=== PATIENT | female | born 1965 | race Hispanic/Latino ===

== ENCOUNTER 2017-09-10 14:34 | Emergency (ER) | payer BC ==
[2017-09-10 14:48] VITALS: O2SAT 100
[2017-09-10 14:58] VITALS: BMI 31.2
[2017-09-10] MEDS ORDERED: Sodium Chloride 0.9% 1,000 ML IV STA (14:59)
--- NOTE | 2017-09-10 15:00 | ED PDOC ---
Arrival/HPI - General Time Seen by Provider: 09/10/17 14:40 Historian: Patient - History of Present Illness Narrative History of Present Illness (Text): 09/10/17 14:57 A 52 year old female, whose past medical history includes hypertension, mild valve regurgitation, presents to the emergency department complaining of nausea , vomiting, and diarrhea that began today. The patient states that she had lunch this afternoon and after she became dizzy and started having diarrhea, nausea, and vomiting. The patient denies fevers, chills, headache, chest pain, shortness of breath, dyspnea on exertion, cough, abdominal pain, back pain, neck pain, urinary/bowel changes, or any other complaint. PMD: Dr. Dean Time/Duration: Other (Today) Symptom Onset: Sudden Symptom Course: Unchanged Activities at Onset: Rest, Light Context: Home Past Medical History - Provider Review Nursing Documentation Reviewed: Yes - Cardiac Hx Pacemaker: No - Neurological Hx Paralysis: No - Endocrine/Metabolic Hx Hypothyroidism: Yes - Hematological/Oncological Hx Blood Transfusions: No Hx Blood Transfusion Reaction: No - Musculoskeletal/Rheumatological Hx Musculoskeletal Disorders: No - Psychiatric Hx Emotional Abuse: No Hx Physical Abuse: No Hx Substance Use: No - Surgical History Hx Tubal Ligation: Yes - Anesthesia Hx Anesthesia Reactions: Yes (NAUSEA) Hx Malignant Hyperthermia: No - Suicidal Assessment Feels Threatened In Home Enviroment: No Family/Social History - Physician Review Nursing Documentation Reviewed: Yes Family/Social History: No Known Family HX Smoking Status: Never Smoked Hx Alcohol Use: No Hx Substance Use: No Allergies/Home Meds Allergies/Adverse Reactions: Allergies azithromycin Allergy (Verified 09/10/17 14:48) RASH Home Medications: Home Meds Medication Instructions Recorded Confirmed Escitalopram [Lexapro] 10 mg PO DAILY 04/08/12 09/10/17 Levothyroxine [Synthroid] 100 mcg PO DAILY 04/08/12 09/10/17 Valsartan [Diovan] 80 mg PO DAILY 09/10/17 09/10/17 Review of Systems - Physician Review All systems were reviewed & negative as marked: Yes - Review of Systems Constitutional: absent: Fevers, Night Sweats Respiratory: absent: SOB, Cough Cardiovascular: absent: Chest Pain, JACOBS Gastrointestinal: Diarrhea, Nausea, Vomiting. absent: Abdominal Pain Genitourinary Female: absent: Urine Output Changes Musculoskeletal: absent: Back Pain, Neck Pain Neurological: Dizziness. absent: Headache Physical Exam Vital Signs Reviewed: Yes Vital Signs Pulse Resp BP Pulse Ox 09/10/17 17:45 86 18 135/61 100 09/10/17 17:03 97 H 18 138/65 100 09/10/17 14:47 103 H 19 142/69 100 Temperature: Afebrile Blood Pressure: Normal Pulse: Regular Respiratory Rate: Normal Appearance: Positive for: Well-Appearing, Non-Toxic, Comfortable Pain Distress: None Mental Status: Positive for: Alert and Oriented X 3 - Systems Exam Head: Present: Atraumatic, Normocephalic Pupils: Present: PERRL Extroacular Muscles: Present: EOMI Conjunctiva: Present: Normal Mouth: Present: Moist Mucous Membranes Neck: Present: Normal Range of Motion Respiratory/Chest: Present: Clear to Auscultation, Good Air Exchange. No: Respiratory Distress, Accessory Muscle Use Cardiovascular: Present: Regular Rate and Rhythm, Normal S1, S2. No: Murmurs Abdomen: Present: Normal Bowel Sounds. No: Tenderness, Distention, Peritoneal Signs Back: Present: Normal Inspection Upper Extremity: Present: Normal Inspection. No: Cyanosis, Edema Lower Extremity: Present: Normal Inspection. No: Edema Neurological: Present: GCS=15, CN II-XII Intact, Speech Normal Skin: Present: Warm, Dry, Normal Color. No: Rashes Psychiatric: Present: Alert, Oriented x 3, Normal Insight, Normal Concentration Medical Decision Making ED Course and Treatment: 09/10/17 15:00 Impression: A 52 year old female presents to the emergency department complaining of nausea , vomiting, diarrhea, and dizziness that began this afternoon. Plan: -- Abdominal Ultrasound -- Labs -- Zofran and IV Fluids -- Urinalysis -- Reassess and disposition Prior Visits: Notes and results from previous visits were reviewed. Patient was last seen in the emergency department on 01/07/13. The patient was seen in the emergency department complaining of headache, dizziness, vomiting. The patient was hospitalized. Progress Notes: EKG: Ordered, reviewed, and independently interpreted the EKG. Rate : 98 BPM Rhythm : NSR Interpretation : Short AL. Non- specific ST- T wave changes. 09/10/17 18:15 Feeling much better, All tests normal- wants to go home - Lab Interpretations Lab Results: 09/10/17 15:00 09/10/17 15:00 Lab Results 09/10/17 16:38: Urine Color Yellow, Urine Appearance Clear, Urine pH 6.5, Ur Specific Tangent 1.020, Urine Protein Negative, Urine Glucose (UA) Negative, Urine Ketones >=80, Urine Blood Negative, Urine Nitrate Negative, Urine Bilirubin Negative, Urine Urobilinogen 0.2, Ur Leukocyte Esterase Negative 09/10/17 15:20: POC Glucose (mg/dL) 109 09/10/17 15:00: Sodium 134, Potassium 3.1 L, Chloride 99, Carbon Dioxide 22, Anion Gap 16, BUN 11, Creatinine 0.6 L, Est GFR ( Amer) > 60, Est GFR ( Non-Af Amer) > 60, Random Glucose 116 H, Calcium 9.5, Total Bilirubin 0.5, AST 26, ALT 32, Alkaline Phosphatase 124, Total Protein 7.8, Albumin 4.5, Globulin 3.3, Albumin/Globulin Ratio 1.4, Lipase 77 09/10/17 15:00: WBC 6.8, RBC 4.72, Hgb 13.3, Hct 39.5, MCV 83.7, MCH 28.2, MCHC 33.7, RDW 12.7, Plt Count 322, MPV 9.0, Gran % 75.1 H, Lymph % (Auto) 12.6 L, [place] % (Auto) 11.0 H, Eos % (Auto) 0.9 L, Baso % (Auto) 0.4, Gran # 5.14, Lymph # 0.9 L, [place] # 0.8 H, Eos # 0.1, Baso # 0.03 I have reviewed the lab results: Yes - RAD Interpretation Radiology Orders: 09/10/17 14:59 ABDOMEN COMPLETE [US] Stat - Medication Orders Current Medication Orders: Discontinued Medications Sodium Chloride (Sodium Chloride 0.9%) 1,000 mls @ 999 mls/hr IV .Q1H1M STA Stop: 09/10/17 15:59 Last Admin: 09/10/17 15:11 Dose: 999 mls/hr eMAR Start Stop Document 09/10/17 15:11 SF (Rec: 09/10/17 15:11 [id number]) Intravenous Solution Start Date 09/10/17 Start Time 15:11 End Date 09/10/17 End time 16:12 Total Infusion Time 61 Ondansetron HCl (Zofran Inj) 8 mg IVP STAT STA Stop: 09/10/17 15:00 Last Admin: 09/10/17 15:11 Dose: 8 mg IVP Administration Document 09/10/17 15:11 SF (Rec: 09/10/17 15:[address] [id number]) Charges for Administration # of IVP Administrations 1 Ondansetron HCl (Zofran Odt) 8 mg PO STAT STA Stop: 09/10/17 17:22 Last Admin: 09/10/17 17:50 Dose: 8 mg - PA / [employer] SUPERVISOR / Resident Statement MD/DO has reviewed & agrees with the documentation as recorded. - Scribe Statement The provider has reviewed the documentation as recorded by the Scribe Ivette Pineda Provider Scribe Attestation: All medical record entries made by the Scribe were at my direction and personally dictated by me. I have reviewed the chart and agree that the record accurately reflects my personal performance of the history, physical exam, medical decision making, and the department course for this patient. I have also personally directed, reviewed, and agree with the discharge instructions and disposition. Disposition/Present on Arrival - Present on Arrival Any Indicators Present on Arrival: No History of DVT/PE: No History of Uncontrolled Diabetes: No Urinary Catheter: No History Surgical Site Infection Following: None - Disposition Have Diagnosis and Disposition been Completed?: Yes Diagnosis: Viral syndrome, Gastroenteritis Disposition: HOME/ ROUTINE Disposition Time: 18:16 Patient Plan: Discharge Condition: GOOD Discharge Instructions (ExitCare): Gastroenteritis (ED) Additional Instructions: Karissa- Sorry this hit you so hard. Rest, Clear liquids only, ZofranODT for nausea and or vomiting. Follow up with your doctor next week. Return to us if worse or new symptoms. Best- Dr. Nico Cavazos Prescriptions: Ondansetron ODT [Zofran ODT] 8 mg PO TID #30 odt Referrals: Nazario Dean MD [Primary Care Provider] - Follow up with primary
[2017-09-10 15:26] LABS: ALB/GLOB RATIO 1.4 (1.1-1.8); ALBUMIN 4.5 g/dL (3.0-4.8); ALT/SGPT 32 U/L (7-56); AST/SGOT 26 U/L (14-36); BLOOD UREA NITROGEN 11 mg/dL (7-21); CALCIUM 9.5 mg/dL (8.4-10.5); GFR AFRICAN-AMERICAN > 60; GFR NON-AFRICAN AMERICAN > 60; LIPASE 77 U/L (23-300)
[2017-09-10 15:28] LABS: BASO # 0.03 K/mm3 (0.0-2.0); BASO % 0.4 % (0.0-3.0); EOS # 0.1 (0.0-0.7); EOS % 0.9 % (1.5-5.0); GRAN # 5.14 (1.4-6.5); GRAN % 75.1 % (50.0-68.0); HEMOGLOBIN 13.3 g/dL (12.0-16.0); LYMPH # 0.9 (1.2-3.4); LYMPH % 12.6 % (22.0-35.0); MEAN CELL VOLUME 83.7 fl (80.0-105.0); MEAN CORPUSCULAR HEMOGLOBIN 28.2 pg (25.0-35.0); MEAN CORPUSCULAR HGB CONC 33.7 g/dl (31.0-37.0); MONO # 0.8 (0.1-0.6); RBC 4.72 10^6/uL (3.5-6.1); RED CELL DISTRIBUTION WIDTH 12.7 % (11.5-14.5); WHITE BLOOD COUNT 6.8 10^3/ul (4.5-11.0)
--- NOTE | 2017-09-10 16:32 | US ---
HISTORY: Biliary Colic COMPARISON: None. TECHNIQUE: Grayscale imaging was performed. FINDINGS: LIVER: Measures 14.6 cm. Normal echogenicity of the liver parenchyma. No mass. No intrahepatic bile duct dilatation. GALLBLADDER: There are no gallstones, wall thickening or pericholecystic fluid. The sonographic Moreno's sign negative. COMMON BILE DUCT: Measures 3.5 mm. No stones. No dilatation. PANCREAS: Normal in size and echotexture. No mass. No ductal dilatation. RIGHT KIDNEY: Measures 10.7cm. Normal echogenicity. No calculus, mass, or hydronephrosis. LEFT KIDNEY: Measures 10.2cm. Normal echogenicity. No calculus, mass, or hydronephrosis. There is a prominent column of Darius in the interpolar region SPLEEN: Normal in size and contour. No mass. AORTA: No aneurysmal dilatation. IVC: Unremarkable. OTHER FINDINGS: None. IMPRESSION: No cholelithiasis or biliary dilatation
[2017-09-10 16:44] LABS: PH,URINE 6.5 (4.7-8.0); URINE BILIRUBIN NEGATIVE (NEGATIVE); URINE BLOOD NEGATIVE (NEGATIVE); URINE GLUCOSE (UA) NEGATIVE (NEGATIVE); URINE LEUKOCYTE ESTERASE NEGATIVE Leu/uL (NEGATIVE); URINE NITRATE NEGATIVE (NEGATIVE); URINE PROTEIN NEGATIVE mg/dL (<30 mg/dL); URINE UROBILINOGEN 0.2 E.U./dL (<1 E.U./dL)
[2017-09-10 16:46] LABS: URINE APPEARANCE CLEAR (CLEAR); URINE COLOR YELLOW (YELLOW)
[2017-09-10 17:04] VITALS: RESP 18
[2017-09-10 17:46] VITALS: BP 135/61; PULSE 86
--- NOTE | 2017-09-11 20:42 | CARD ---
APPROVED REPORT EKG Measurement Heart [id number] IL [id number] <Conclusion> Sinus rhythm with short [place] Nonspecific ST and T wave abnormality Abnormal ECG
== END 2017-09-10 18:45 | disposition home or self-care (01) ==
LOC: ED 14:34
DX: B34.9 Viral infection, unspecified (principal); K52.9 Noninfective gastroenteritis and colitis, unspecified; I10 Essential (primary) hypertension; E03.9 Hypothyroidism, unspecified
CPT/HCPCS: 76700; 80053; 81003; 82948; 83690; 85025; 93005; 96361; 96374; 99285; J2405; J7040

== ENCOUNTER 2017-09-13 13:14 | Emergency (ER) | payer BC ==
[2017-09-13 13:32] VITALS: RESP 18; O2SAT 100; BMI 31.2
[2017-09-13] MEDS ORDERED: Sodium Chloride 0.9% 1,000 ML IV STA (14:05)
--- NOTE | 2017-09-13 14:09 | ED PDOC ---
Arrival/HPI - General Chief Complaint: GI Problem Time Seen by Provider: 09/13/17 13:53 Historian: Patient, Spouse - History of Present Illness Time/Duration: Other (3 days) Symptom Onset: Sudden Severity Level: Moderate Activities at Onset: Rest Associated Symptoms (Text): 09/13/17 14:06 Patient reports that 3 days prior to arrival she suffered the acute onset of abdominal pain and dizziness nausea vomiting and diarrhea. She was seen in the emergency department and had an ultrasound which was unrevealing. Blood work and IV was given. She was starting to feel better. She was unable to fill her prescription for Zofran. She reports that she started to feel better, but the symptoms began again today but also accompanied with a cough. There is no abdominal pain today. No dizziness. There is nausea vomiting and diarrhea. No genitourinary symptoms. No fever. 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 Past Medical History - Reproductive Menopause: Yes - Cardiac Hx Cardiac Disorders: Yes Hx Hypertension: Yes - Pulmonary Hx Respiratory Disorders: No - Neurological Hx Neurological Disorder: No Hx Paralysis: No - HEENT Hx HEENT Disorder: No - Renal Hx Renal Disorder: No - Endocrine/Metabolic Hx Endocrine Disorders: Yes Hx Hypothyroidism: Yes - Hematological/Oncological Hx Blood Disorders: No Hx Blood Transfusions: No Hx Blood Transfusion Reaction: No - Integumentary Hx Dermatological Disorder: No - Musculoskeletal/Rheumatological Hx Musculoskeletal Disorders: No - Gastrointestinal Hx Gastrointestinal Disorders: Yes Hx Gastroesophageal Reflux: Yes - Genitourinary/Gynecological Hx Genitourinary Disorders: No Other/Comment: partial hysterectomy - Psychiatric Hx Emotional Abuse: No Hx Physical Abuse: No Hx Substance Use: No - Surgical History Hx Hysterectomy: Yes Hx Thyroidectomy: Yes Hx Tubal Ligation: Yes - Anesthesia Hx Anesthesia Reactions: Yes (NAUSEA) Hx Malignant Hyperthermia: No - Suicidal Assessment Feels Threatened In Home Enviroment: No Family/Social History - Physician Review Nursing Documentation Reviewed: Yes Family/Social History: Unknown Family HX Smoking Status: Never Smoked Hx Alcohol Use: No Hx Substance Use: No Allergies/Home Meds Allergies/Adverse Reactions: Allergies azithromycin Allergy (Verified 09/13/17 13:32) RASH Home Medications: Home Meds Medication Instructions Recorded Confirmed Escitalopram [Lexapro] 10 mg PO DAILY 04/08/12 09/13/17 Levothyroxine [Synthroid] 100 mcg PO DAILY 04/08/12 09/13/17 Valsartan [Diovan] 80 mg PO DAILY 09/10/17 09/13/17 Review of Systems - Physician Review All systems were reviewed & negative as marked: Yes - Review of Systems Constitutional: Fatigue. absent: Fevers Respiratory: Cough. absent: SOB, Sputum, Wheezing Cardiovascular: absent: Chest Pain, Palpitations, Syncope Gastrointestinal: Abdominal Pain, Diarrhea, Nausea, Vomiting, Anorexia. absent : Constipation Genitourinary Female: absent: Dysuria, Frequency, Hematuria Neurological: Dizziness. absent: Headache, Focal Weakness, Gait Changes, Speech Changes, Facial Droop, Disequilibrium, Seizure Physical Exam Vital Signs Temp Pulse Resp BP Pulse Ox 09/13/17 13:27 98.0 F 81 18 122/80 100 Temperature: Afebrile Blood Pressure: Normal Pulse: Regular Respiratory Rate: Normal Appearance: Positive for: Well-Appearing, Non-Toxic, Comfortable Pain Distress: None Mental Status: Positive for: Alert and Oriented X 3 - Systems Exam Head: Present: Atraumatic, Normocephalic Pupils: Present: PERRL Extroacular Muscles: Present: EOMI Conjunctiva: Present: Normal Mouth: Present: Moist Mucous Membranes Pharnyx: No: ERYTHEMA, EXUDATE, TONSILS ENLARGED Neck: Present: Normal Range of Motion Respiratory/Chest: Present: Clear to Auscultation, Good Air Exchange. No: Respiratory Distress, Accessory Muscle Use Cardiovascular: Present: Regular Rate and Rhythm, Normal S1, S2. No: Murmurs Abdomen: Present: Normal Bowel Sounds. No: Tenderness, Distention, Peritoneal Signs, Rebound, Guarding Back: Present: Normal Inspection. No: CVA Tenderness Upper Extremity: Present: Normal Inspection. No: Cyanosis, Edema Lower Extremity: Present: Normal Inspection. No: Edema Neurological: Present: GCS=15, CN II-XII Intact, Speech Normal, Motor Func Grossly Intact Skin: Present: Warm, Dry, Normal Color. No: Rashes Psychiatric: Present: Alert, Oriented x 3, Normal Insight, Normal Concentration Medical Decision Making ED Course and Treatment: 09/13/17 17:17 Feeling better after 2 doses of Zofran and 2 boluses of saline. Discharged home accompanied by . Follow-up with PMD. Follow up in ER as needed. Clear liquids overnight. - Lab Interpretations Lab Results: 09/13/17 13:45 09/13/17 13:45 Lab Results 09/13/17 13:45: Sodium 140, Potassium 3.5 L, Chloride 101, Carbon Dioxide 26, Anion Gap 17, BUN 7, Creatinine 0.6 L, Est GFR ( Amer) > 60, Est GFR (Non -Af Amer) > 60, Random Glucose 103, Calcium 9.9, Total Bilirubin 0.3, AST 27, ALT 39, Alkaline Phosphatase 127 H, Total Protein 8.4 H, Albumin 4.6, Globulin 3.8, Albumin/Globulin Ratio 1.2, Lipase 92 09/13/17 13:45: WBC 4.8 D, RBC 5.35, Hgb 14.8, Hct 44.9, MCV 83.9, MCH 27.7, MCHC 33.0, RDW 13.3, Plt Count 333, MPV 9.5, Gran % 68.7 H, Lymph % (Auto) 20.0 L, [place] % (Auto) 10.3 H, Eos % (Auto) 0.6 L, Baso % (Auto) 0.4, Gran # 3.27, Lymph # 1.0 L, [place] # 0.5, Eos # 0.0, Baso # 0.02 - RAD Interpretation Radiology Orders: 09/13/17 14:05 CHEST PORTABLE [RAD] Stat Chest one view shows no infiltrate or effusion or cardiomegaly Wedding Coordinator: ED Physician - Medication Orders Current Medication Orders: Sodium Chloride (Sodium Chloride 0.9%) 1,000 mls @ 500 mls/hr IV ONCE ONE Stop: 09/13/17 18:00 Last Admin: 09/13/17 16:11 Dose: 500 mls/hr eMAR Start Stop Document 09/13/17 16:11 [facility] (Rec: 09/13/17 16:12 [facility] [id number]) Intravenous Solution Start Date 09/13/17 Start Time 16:12 End Date 09/13/17 End time 18:15 Total Infusion Time 123 Discontinued Medications Sodium Chloride (Sodium Chloride 0.9%) 1,000 mls @ 1,000 mls/hr IV .Q1H STA Stop: 09/13/17 15:04 Last Admin: 09/13/17 14:46 Dose: 1,000 mls/hr eMAR Start Stop Document 09/13/17 14:46 [facility] (Rec: 09/13/17 14[facility]46 [id number] Intravenous Solution Start Date 09/13/17 Start Time 14:15 End Date 09/13/17 End time 15:15 Total Infusion Time 60 Ondansetron HCl (Zofran Inj) 4 mg IVP STAT STA Stop: 09/13/17 14:06 Last Admin: 09/13/17 14:47 Dose: 4 mg IVP Administration Document 09/13/17 14:47 [facility] (Rec: 09/13/17 14:47 [id number] Charges for Administration # of IVP Administrations 1 Ondansetron HCl (Zofran Inj) 4 mg IVP ONCE ONE Stop: 09/13/17 15:11 Last Admin: 09/13/17 16:13 Dose: 4 mg IVP Administration Document 09/13/17 16:13 [facility] (Rec: 09/13/17 16:13 [id number] Charges for Administration # of IVP Administrations 1 Pantoprazole Sodium (Protonix Inj) 40 mg IVP STAT STA Stop: 09/13/17 14:06 Last Admin: 09/13/17 14:47 Dose: 40 mg IVP Administration Document 09/13/17 14:47 [facility] (Rec: 09/13/17 14:47 [id number]) Charges for Administration # of IVP Administrations 1 Disposition/Present on Arrival - Present on Arrival Any Indicators Present on Arrival: No History of DVT/PE: No History of Uncontrolled Diabetes: No Urinary Catheter: No History of Decub. Ulcer: No History Surgical Site Infection Following: None - Disposition Have Diagnosis and Disposition been Completed?: Yes Diagnosis: Gastroenteritis, Nausea vomiting and diarrhea Disposition: HOME/ ROUTINE Disposition Time: 17:18 Patient Plan: Discharge Patient Problems: Current Active Problems Problem Status Onset Gastroenteritis Acute Condition: IMPROVED Discharge Instructions (ExitCare): Gastroenteritis (ED), Acute Nausea and Vomiting (ED), Acute Diarrhea (ED) Prescriptions: Ondansetron [Zofran Odt] 4 mg SL Q6 #20 odt Referrals: Rhona Robert DO [Primary Care Provider] - Follow up with primary Forms: [employer] (Togolese)
[2017-09-13 14:35] LABS: BASO # 0.02 K/mm3 (0.0-2.0); BASO % 0.4 % (0.0-3.0); EOS % 0.6 % (1.5-5.0); GRAN # 3.27 (1.4-6.5); GRAN % 68.7 % (50.0-68.0); HEMOGLOBIN 14.8 g/dL (12.0-16.0); MEAN CELL VOLUME 83.9 fl (80.0-105.0); MEAN CORPUSCULAR HEMOGLOBIN 27.7 pg (25.0-35.0); MEAN PLATELET VOLUME 9.5 fl (7.0-11.0); MONO # 0.5 (0.1-0.6); MONO % 10.3 % (1.0-6.0); RBC 5.35 10^6/uL (3.5-6.1); RED CELL DISTRIBUTION WIDTH 13.3 % (11.5-14.5); WHITE BLOOD COUNT 4.8 10^3/ul (4.5-11.0)
--- NOTE | 2017-09-13 14:36 | RAD ---
HISTORY: cough COMPARISON: No prior. FINDINGS: LUNGS: No active pulmonary disease. PLEURA: No significant pleural effusion identified, no pneumothorax apparent. CARDIOVASCULAR: Normal. OSSEOUS STRUCTURES: No significant abnormalities. VISUALIZED UPPER ABDOMEN: Normal. OTHER FINDINGS: None. IMPRESSION: No active disease.
[2017-09-13 14:39] LABS: ALB/GLOB RATIO 1.2 (1.1-1.8); ALBUMIN 4.6 g/dL (3.0-4.8); ALT/SGPT 39 U/L (7-56); AST/SGOT 27 U/L (14-36); BLOOD UREA NITROGEN 7 mg/dL (7-21); CALCIUM 9.9 mg/dL (8.4-10.5); GFR AFRICAN-AMERICAN > 60; GFR NON-AFRICAN AMERICAN > 60; LIPASE 92 U/L (23-300)
[2017-09-13] MEDS ORDERED: Sodium Chloride 0.9% 1,000 ML IV ONE (16:01)
[2017-09-13 17:33] VITALS: BP 154/80; PULSE 83; TEMP 98.3
== END 2017-09-13 17:34 | disposition home or self-care (01) ==
LOC: ED 13:14
DX: K52.9 Noninfective gastroenteritis and colitis, unspecified (principal); I10 Essential (primary) hypertension; K21.9 Gastro-esophageal reflux disease without esophagitis
CPT/HCPCS: 71045; 80053; 83690; 85025; 96361; 96374; 96375; 96376; 99283; C9113; J2405; J7040